=== PATIENT | female | born 1995 | race Hispanic/Latino ===

== ENCOUNTER 2019-12-29 12:47 | Emergency (ER) | payer MEDICAID, OTHER ==
[2019-12-29 15:57] LABS: APPEARANCE,URINE Cloudy (CLEAR); BILIRUBIN,URINE Negative (NEGATIVE); COLOR,URINE Yellow (YELLOW); GLUCOSE, URINE (UA) Negative (NEGATIVE); KETONES,URINE 15 mg/dL (NEGATIVE); LEUKOCYTE ESTERASE ,URINE Negative (NEGATIVE); NITRATE,URINE Negative (NEGATIVE); OCCULT BLOOD,URINE Negative (NEGATIVE); PROTEIN,URINE Negative (NEGATIVE); UROBILINOGEN,URINE 0.2 mg/dL (0.2-1.0)
[2019-12-29 15:59] LABS: HCG,QUAL RESULT NEGATIVE (NEGATIVE)
[2019-12-29 16:23] LABS: RAPID GROUP A STREP NEGATIVE (NEGATIVE)
[2019-12-29 16:28] LABS: SQUAMOUS EPITHELIAL CELL,UR 30-50 /HPF (0-2)
[2019-12-29 16:29] LABS: MUCUS,URINE Moderate LPF (None Seen)
[2019-12-29 16:30] LABS: BACTERIA,URINE Few /HPF (None Seen)
[2019-12-29 16:31] LABS: WBC,URINE 0-1 /HPF (0-1)
[2019-12-29 16:32] LABS: RBC,URINE 0-1 /HPF (0-1)
== END 2019-12-29 17:40 | disposition home or self-care (01) ==
LOC: EDH 12:47
DX: R05 Cough (principal); R50.9 Fever, unspecified; Z20.828 Contact with and (suspected) exposure to other viral communicable diseases
CPT/HCPCS: 71045; 81001; 81025; 87804; 87880